=== PATIENT | male | born 1975 ===

== ENCOUNTER 2021-03-24 14:22 | Inpatient (IN) | payer OTHER ==
[~2021-03-24] VITALS: Ht 170.2 cm; Wt 71.8 kg
[2021-03-24] MEDS ORDERED: SODIUM CHLORIDE 0.9% 500 ML IVB ONE (14:45)
[2021-03-24] MEDS ORDERED: MORPHINE SULFATE 4 MG/ML SYR/VIAL IV ONE (14:45)
[2021-03-24] MEDS ORDERED: ONDANSETRON HCL 4 MG/2 ML VIAL IV ONE (14:45)
[2021-03-24 15:31] LABS: Basophils # (auto) 0.1 10 ^3/uL (0-0.2); Basophils % (auto) 0.8 % (0.0-2.0); Eosinophils # (auto) 0 10 ^3/uL (0-0.8); Eosinophils % (auto) 0.4 % (0.0-7.0); Lymphocytes # (auto) 3.1 10 ^3/uL (0.4-5.4); Mean Corpuscular Hemoglobin 24.1 pg (28.0-32.0); Mean Corpuscular Hgb Conc. 32.2 g/dL (32.0-36.0); Mean Corpuscular Volume 74.8 fL (80.0-100.0); Monocytes # (auto) 0.8 10 ^3/uL (0-1.3); Monocytes % (auto) 12.7 % (0.0-12.0); Neutrophils # (auto) 2.5 10 ^3/uL (1.6-8.6); Neutrophils % (auto) 38.1 % (37.0-80.0); Nucleated Red Blood Cells % 0.1 %; Red Blood Cells 4.15 10^6/uL (4.5-5.90); Red Cell Distribution Width 18.8 % (11.8-14.3); White Blood Cell 6.5 10^3/uL (4.4-10.8)
[2021-03-24 15:50] LABS: Albumin 1.8 g/dL (3.4-5.0); Calcium 7.7 mg/dL (8.5-10.1); Potassium 4.2 mmol/L (3.5-5.1)
[2021-03-24 15:54] LABS: BUN/Creatinine Ratio 13.9; Bilirubin, Total 0.6 mg/dL (0.2-1.0)
[2021-03-24] MEDS ORDERED: MORPHINE SULFATE INJECTION 2 MG/ML SYRG IV PRN (17:45)
[2021-03-24] MEDS ORDERED: NITROGLYCERIN 0.4 MG SL TAB SL PRN (17:45)
[2021-03-24] MEDS ORDERED: ONDANSETRON HCL 4 MG/2 ML VIAL IV PRN (17:45)
[2021-03-25] MEDS: PANTOPRAZOLE 40 MG/10 ML VIAL INJ IV SCH ×3 (00:40→21:09)
[2021-03-25] MEDS: DULoxetine HCL 30 MG CAP PO SCH ×2 (00:41→21:09)
[2021-03-25 05:25] VITALS: BP 131/86
[2021-03-25] MEDS: ONDANSETRON HCL 4 MG/2 ML VIAL IV PRN (05:39)
[2021-03-25 07:10] LABS: Basophils # (auto) 0 10 ^3/uL (0-0.2); Basophils % (auto) 0.7 % (0.0-2.0); Eosinophils # (auto) 0 10 ^3/uL (0-0.8); Lymphocytes # (auto) 1.6 10 ^3/uL (0.4-5.4); Monocytes # (auto) 0.6 10 ^3/uL (0-1.3); Neutrophils # (auto) 2.9 10 ^3/uL (1.6-8.6)
[2021-03-25 07:12] LABS: Eosinophils % (auto) 0.7 % (0.0-7.0); Hematocrit 29.6 % (41.0-53.0); Hemoglobin 9.4 g/dL (13.5-17.5); Lymphocytes % (auto) 30.6 % (10.0-50.0); Mean Corpuscular Hemoglobin 23.9 pg (28.0-32.0); Mean Corpuscular Hgb Conc. 31.8 g/dL (32.0-36.0); Monocytes % (auto) 12.1 % (0.0-12.0); Neutrophils % (auto) 55.9 % (37.0-80.0); Nucleated Red Blood Cells % 0.3 %; Red Blood Cells 3.95 10^6/uL (4.5-5.90); White Blood Cell 5.2 10^3/uL (4.4-10.8)
[2021-03-25 07:21] LABS: INR 1.12 (0.9-1.15); Partial Thromboplastin Time 33.2 sec (23.6-33.0)
[2021-03-25 07:25] LABS: Potassium 3.6 mmol/L (3.5-5.1)
[2021-03-25 07:29] LABS: Red Cell Distribution Width 19.1 % (11.8-14.3)
[2021-03-25 07:30] LABS: Albumin 1.8 g/dL (3.4-5.0); BUN/Creatinine Ratio 20.3; Bilirubin, Total 0.5 mg/dL (0.2-1.0); Calcium 7.5 mg/dL (8.5-10.1); Total Protein 5.9 g/dL (6.4-8.2)
[2021-03-25 08:00] VITALS: BP 123/84
[2021-03-25 09:00] VITALS: BP 123/84
[2021-03-25] MEDS: D5W/SOD CHL 0.45%/KCL 20MEQ 1,000 ML IV SCH ×2 (12:57→19:15)
[2021-03-25 13:00] VITALS: BP 122/79
[2021-03-25] MEDS: MEROPENEM 1GM IVPB 100 ML IV SCH ×2 (15:32→21:08)
[2021-03-25 17:00] VITALS: BP 124/80
[2021-03-25 22:00] VITALS: BP 127/84
[2021-03-26] MEDS: D5W/SOD CHL 0.45%/KCL 20MEQ 1,000 ML IV SCH ×2 (03:40→23:55)
[2021-03-26 05:00] VITALS: BP 129/89
[2021-03-26 05:05] LABS: Basophils # (auto) 0 10 ^3/uL (0-0.2); Eosinophils # (auto) 0 10 ^3/uL (0-0.8); Eosinophils % (auto) 0.8 % (0.0-7.0); Hemoglobin 9.5 g/dL (13.5-17.5); Monocytes # (auto) 0.7 10 ^3/uL (0-1.3); Nucleated Red Blood Cells % 0.1 %
[2021-03-26 05:07] LABS: Basophils % (auto) 0.9 % (0.0-2.0); Hematocrit 29.3 % (41.0-53.0); Lymphocytes # (auto) 2.5 10 ^3/uL (0.4-5.4); Lymphocytes % (auto) 49.6 % (10.0-50.0); Mean Corpuscular Hemoglobin 24.2 pg (28.0-32.0); Mean Corpuscular Hgb Conc. 32.5 g/dL (32.0-36.0); Mean Corpuscular Volume 74.4 fL (80.0-100.0); Monocytes % (auto) 12.9 % (0.0-12.0); Neutrophils # (auto) 1.8 10 ^3/uL (1.6-8.6); Neutrophils % (auto) 35.8 % (37.0-80.0); Red Blood Cells 3.94 10^6/uL (4.5-5.90); White Blood Cell 5.1 10^3/uL (4.4-10.8)
[2021-03-26 05:23] LABS: Calcium 7.6 mg/dL (8.5-10.1); Potassium 3.8 mmol/L (3.5-5.1)
[2021-03-26 05:27] LABS: Albumin 1.7 g/dL (3.4-5.0); BUN/Creatinine Ratio 9.5
[2021-03-26 05:29] LABS: Bilirubin, Total 0.4 mg/dL (0.2-1.0); Total Protein 5.7 g/dL (6.4-8.2)
[2021-03-26] MEDS: MEROPENEM 1GM IVPB 100 ML IV SCH ×3 (05:44→21:03)
[2021-03-26 09:00] VITALS: BP 131/87
[2021-03-26] MEDS: PANTOPRAZOLE 40 MG/10 ML VIAL INJ IV SCH ×2 (10:00→21:03)
[2021-03-26 13:00] VITALS: BP 123/81
[2021-03-26] MEDS: DULoxetine HCL 30 MG CAP PO SCH (21:03)
[2021-03-26 22:02] VITALS: BP 116/80
[2021-03-27] MEDS: D5W/SOD CHL 0.45%/KCL 20MEQ 1,000 ML IV SCH ×3 (01:15→22:56)
[2021-03-27 05:00] VITALS: BP 114/79
[2021-03-27] MEDS: MEROPENEM 1GM IVPB 100 ML IV SCH ×3 (05:37→22:53)
[2021-03-27] MEDS: PANTOPRAZOLE 40 MG/10 ML VIAL INJ IV SCH ×2 (09:41→22:52)
[2021-03-27 13:00] VITALS: BP 112/74
[2021-03-27 22:00] VITALS: BP 120/80
[2021-03-27] MEDS: DULoxetine HCL 30 MG CAP PO SCH (22:52)
[2021-03-28 05:00] VITALS: BP 118/81
[2021-03-28] MEDS: MEROPENEM 1GM IVPB 100 ML IV SCH ×3 (06:36→21:46)
[2021-03-28] MEDS: D5W/SOD CHL 0.45%/KCL 20MEQ 1,000 ML IV SCH ×2 (07:53→17:15)
[2021-03-28] MEDS ORDERED: MORPHINE SULFATE INJECTION 2 MG/ML SYRG IV PRN (08:45)
[2021-03-28] MEDS ORDERED: HYDROcodone-ACET 5/325MG TAB PO PRN (08:45)
[2021-03-28 09:00] VITALS: BP 121/75
[2021-03-28] MEDS: PANTOPRAZOLE 40 MG/10 ML VIAL INJ IV SCH ×2 (10:05→21:46)
[2021-03-28] MEDS: HYDROcodone-ACET 5/325MG TAB PO PRN (10:07)
[2021-03-28 13:02] VITALS: BP 116/85
[2021-03-28 16:49] VITALS: BP 108/72
[2021-03-28] MEDS: DULoxetine HCL 30 MG CAP PO SCH (21:46)
[2021-03-28 22:00] VITALS: BP 110/82
[2021-03-29] MEDS: D5W/SOD CHL 0.45%/KCL 20MEQ 1,000 ML IV SCH ×3 (04:30→23:15)
[2021-03-29 05:00] VITALS: BP 109/77
[2021-03-29] MEDS: MEROPENEM 1GM IVPB 100 ML IV SCH ×3 (06:28→21:37)
[2021-03-29 08:05] LABS: Basophils # (auto) 0.1 10 ^3/uL (0-0.2); Nucleated Red Blood Cells % 0.1 %; White Blood Cell 5.2 10^3/uL (4.4-10.8)
[2021-03-29 08:07] LABS: Basophils % (auto) 1.2 % (0.0-2.0); Eosinophils # (auto) 0.1 10 ^3/uL (0-0.8); Eosinophils % (auto) 1.2 % (0.0-7.0); Hematocrit 33.8 % (41.0-53.0); Hemoglobin 10.5 g/dL (13.5-17.5); Lymphocytes # (auto) 2.3 10 ^3/uL (0.4-5.4); Lymphocytes % (auto) 43.8 % (10.0-50.0); Mean Corpuscular Hgb Conc. 31.1 g/dL (32.0-36.0); Monocytes # (auto) 0.5 10 ^3/uL (0-1.3); Monocytes % (auto) 9.6 % (0.0-12.0); Neutrophils # (auto) 2.3 10 ^3/uL (1.6-8.6); Neutrophils % (auto) 44.2 % (37.0-80.0); Red Blood Cells 4.52 10^6/uL (4.5-5.90)
[2021-03-29 08:12] LABS: Mean Corpuscular Hemoglobin 23.2 pg (28.0-32.0); Mean Corpuscular Volume 74.7 fL (80.0-100.0)
[2021-03-29 08:22] LABS: Albumin 1.7 g/dL (3.4-5.0); Calcium 7.7 mg/dL (8.5-10.1)
[2021-03-29 08:26] LABS: BUN/Creatinine Ratio 8.8; Bilirubin, Total 0.4 mg/dL (0.2-1.0); Total Protein 5.8 g/dL (6.4-8.2)
[2021-03-29 09:00] VITALS: BP 115/81
[2021-03-29] MEDS: PANTOPRAZOLE 40 MG/10 ML VIAL INJ IV SCH ×2 (09:09→21:36)
[2021-03-29 13:03] VITALS: BP 112/74
[2021-03-29 17:00] VITALS: BP 110/76
[2021-03-29] MEDS: DULoxetine HCL 30 MG CAP PO SCH (21:36)
[2021-03-29 22:00] VITALS: BP 113/74
[2021-03-30 05:36] VITALS: BP 113/76
[2021-03-30] MEDS: MEROPENEM 1GM IVPB 100 ML IV SCH ×3 (05:42→21:05)
[2021-03-30 09:00] VITALS: BP 113/85
[2021-03-30] MEDS: D5W/SOD CHL 0.45%/KCL 20MEQ 1,000 ML IV SCH ×2 (09:44→19:15)
[2021-03-30] MEDS: PANTOPRAZOLE 40 MG/10 ML VIAL INJ IV SCH ×2 (09:44→21:05)
[2021-03-30 13:00] VITALS: BP 119/80
[2021-03-30] MEDS: ACYCLOVIR 400 MG TAB PO SCH ×3 (14:00→21:07)
[2021-03-30] MEDS: DULoxetine HCL 30 MG CAP PO SCH (21:06)
[2021-03-30 22:35] VITALS: BP 121/78
[2021-03-31] MEDS: D5W/SOD CHL 0.45%/KCL 20MEQ 1,000 ML IV SCH ×2 (05:15→15:15)
[2021-03-31] MEDS: MEROPENEM 1GM IVPB 100 ML IV SCH ×3 (05:45→21:31)
[2021-03-31] MEDS: ACYCLOVIR 400 MG TAB PO SCH ×5 (05:45→21:32)
[2021-03-31] MEDS: PANTOPRAZOLE 40 MG/10 ML VIAL INJ IV SCH ×2 (10:24→21:31)
[2021-03-31] MEDS: DULoxetine HCL 30 MG CAP PO SCH (21:32)
[2021-03-31 22:00] VITALS: BP 125/78
[2021-03-31] MEDS: HYDROcodone-ACET 5/325MG TAB PO PRN (22:30)
[2021-04-01] MEDS: D5W/SOD CHL 0.45%/KCL 20MEQ 1,000 ML IV SCH ×3 (01:16→21:15)
[2021-04-01 05:00] VITALS: BP 116/80
[2021-04-01] MEDS: ACYCLOVIR 400 MG TAB PO SCH ×5 (05:42→21:55)
[2021-04-01] MEDS: MEROPENEM 1GM IVPB 100 ML IV SCH ×3 (05:42→21:53)
[2021-04-01 09:00] VITALS: BP 125/85
[2021-04-01] MEDS ORDERED: GOLYTELY 4L KIT PO ONE (10:00)
[2021-04-01] MEDS: PANTOPRAZOLE 40 MG/10 ML VIAL INJ IV SCH ×2 (11:17→21:53)
[2021-04-01 13:00] VITALS: BP 119/76
[2021-04-01] MEDS: ONDANSETRON HCL 4 MG/2 ML VIAL IV PRN (14:51)
[2021-04-01 17:00] VITALS: BP 118/78
[2021-04-01] MEDS: DULoxetine HCL 30 MG CAP PO SCH (21:54)
[2021-04-01 22:00] VITALS: BP 120/75
[2021-04-02 05:30] VITALS: BP 115/78
[2021-04-02] MEDS ORDERED: GOLYTELY 4L KIT PO ONE (06:00)
[2021-04-02] MEDS: ACYCLOVIR 400 MG TAB PO SCH ×5 (06:00→22:57)
[2021-04-02] MEDS: MEROPENEM 1GM IVPB 100 ML IV SCH ×2 (06:00→14:50)
[2021-04-02] MEDS: D5W/SOD CHL 0.45%/KCL 20MEQ 1,000 ML IV SCH ×4 (07:31→18:19)
[2021-04-02] MEDS ORDERED: diphenhdrAMINE HCL 50 MG/1 ML VL ONE (08:18)
[2021-04-02] MEDS ORDERED: fentaNYL CITRATE 100 MCG/2 ML VL ONE (08:18)
[2021-04-02] MEDS ORDERED: MIDAZOLAM HCL 5 MG/ML-1ML VIAL ONE (08:18)
[2021-04-02] MEDS: PANTOPRAZOLE 40 MG/10 ML VIAL INJ IV SCH ×2 (09:14→22:57)
[2021-04-02 09:41] VITALS: BP 115/72
[2021-04-02 10:53] LABS: Basophils # (auto) 0 10 ^3/uL (0-0.2); Basophils % (auto) 0.6 % (0.0-2.0); Eosinophils # (auto) 0 10 ^3/uL (0-0.8); Hemoglobin 10.2 g/dL (13.5-17.5); Monocytes # (auto) 0.6 10 ^3/uL (0-1.3)
[2021-04-02 10:56] LABS: Eosinophils % (auto) 0.4 % (0.0-7.0); Lymphocytes # (auto) 2.8 10 ^3/uL (0.4-5.4); Lymphocytes % (auto) 37.9 % (10.0-50.0); Mean Corpuscular Hemoglobin 24.1 pg (28.0-32.0); Mean Corpuscular Hgb Conc. 32.8 g/dL (32.0-36.0); Mean Corpuscular Volume 73.5 fL (80.0-100.0); Monocytes % (auto) 8.1 % (0.0-12.0); Neutrophils # (auto) 3.9 10 ^3/uL (1.6-8.6); Nucleated Red Blood Cells % 0.1 %; Red Blood Cells 4.21 10^6/uL (4.5-5.90); Red Cell Distribution Width 19.1 % (11.8-14.3); White Blood Cell 7.3 10^3/uL (4.4-10.8)
[2021-04-02 11:08] LABS: Albumin 1.7 g/dL (3.4-5.0); BUN/Creatinine Ratio 8.3; Bilirubin, Total 0.4 mg/dL (0.2-1.0); Calcium 7.6 mg/dL (8.5-10.1); Total Protein 6.4 g/dL (6.4-8.2)
[2021-04-02 11:10] LABS: INR 1.16 (0.9-1.15); Partial Thromboplastin Time 42.7 sec (23.6-33.0)
[2021-04-02] MEDS ORDERED: methylPREDNISolone SOD SUCC 1,000 MG in SODIUM CHL 0.9% 250 ML IV ONE (12:15)
[2021-04-02 13:00] VITALS: BP 125/77
[2021-04-02] MEDS ORDERED: AZITHROMYCIN 250 MG TAB PO ONE (16:30)
[2021-04-02] MEDS ORDERED: REMDESIVIR PER PHARMACY 0 ML IV SCH (16:45)
[2021-04-02 17:00] VITALS: BP 124/73
[2021-04-02] MEDS ORDERED: REMDESIVIR 200 MG in NS 210ml LOADING DOSE ADULT IV ONE (20:00)
[2021-04-02] MEDS: ALBUTEROL SULF HFA 90MCG INH 200DOSE IN SCH (21:55)
[2021-04-02 22:00] VITALS: BP 111/70
[2021-04-02] MEDS: methylPREDNISolone SOD SUCC 125 MG/2 ML VL IV SCH (22:57)
[2021-04-02] MEDS: DULoxetine HCL 30 MG CAP PO SCH (22:57)
[2021-04-03] MEDS: MEROPENEM 1GM IVPB 100 ML IV SCH ×4 (00:27→20:59)
[2021-04-03 05:00] VITALS: BP 124/81
[2021-04-03] MEDS: ACYCLOVIR 400 MG TAB PO SCH ×4 (05:48→19:58)
[2021-04-03] MEDS: ALBUTEROL SULF HFA 90MCG INH 200DOSE IN SCH ×2 (06:00→22:15)
[2021-04-03 07:32] LABS: Potassium 4.1 mmol/L (3.5-5.1)
[2021-04-03 07:40] LABS: Albumin 1.7 g/dL (3.4-5.0); Bilirubin, Total 0.3 mg/dL (0.2-1.0); Calcium 7.5 mg/dL (8.5-10.1); Total Protein 6.5 g/dL (6.4-8.2)
[2021-04-03 09:00] VITALS: BP 120/80
[2021-04-03] MEDS: methylPREDNISolone SOD SUCC 125 MG/2 ML VL IV SCH ×2 (10:30→20:59)
[2021-04-03] MEDS: ASCORBIC ACID 500 MG TAB PO SCH (10:30)
[2021-04-03] MEDS: CHOLECALCIFEROL (VITD3) 1,000UNIT=25mCg TAB PO SCH (10:30)
[2021-04-03] MEDS: PANTOPRAZOLE 40 MG/10 ML VIAL INJ IV SCH ×2 (11:00→20:59)
[2021-04-03] MEDS ORDERED: ACETAMINOPHEN 325 MG TAB PO PRN (12:30)
[2021-04-03 13:00] VITALS: BP 120/75
[2021-04-03] MEDS: D5W/SOD CHL 0.45%/KCL 20MEQ 1,000 ML IV SCH (14:00)
[2021-04-03] MEDS: REMDESIVIR 100mg 100 MG in SODIUM CHL 0.9% 230 ML IV SCH (15:30)
[2021-04-03 17:00] VITALS: BP 118/75
[2021-04-03] MEDS: DULoxetine HCL 30 MG CAP PO SCH (20:59)
[2021-04-03 22:00] VITALS: BP 127/78
[2021-04-04] MEDS: D5W/SOD CHL 0.45%/KCL 20MEQ 1,000 ML IV SCH ×3 (00:16→21:34)
[2021-04-04] MEDS: ACYCLOVIR 400 MG TAB PO SCH ×6 (00:16→21:34)
[2021-04-04 05:00] VITALS: BP 126/72
[2021-04-04] MEDS: ALBUTEROL SULF HFA 90MCG INH 200DOSE IN SCH ×2 (05:46→14:28)
[2021-04-04] MEDS: MEROPENEM 1GM IVPB 100 ML IV SCH ×3 (06:00→21:34)
[2021-04-04 06:28] LABS: Potassium 4.1 mmol/L (3.5-5.1)
[2021-04-04 06:38] LABS: Albumin 1.7 g/dL (3.4-5.0); Bilirubin, Total 0.2 mg/dL (0.2-1.0); Calcium 7.7 mg/dL (8.5-10.1); Total Protein 5.8 g/dL (6.4-8.2)
[2021-04-04 09:00] VITALS: BP 119/69
[2021-04-04] MEDS: PANTOPRAZOLE 40 MG/10 ML VIAL INJ IV SCH ×2 (10:50→21:34)
[2021-04-04] MEDS: ASCORBIC ACID 500 MG TAB PO SCH (10:51)
[2021-04-04] MEDS: CHOLECALCIFEROL (VITD3) 1,000UNIT=25mCg TAB PO SCH (10:51)
[2021-04-04] MEDS: methylPREDNISolone SOD SUCC 125 MG/2 ML VL IV SCH ×2 (10:51→21:34)
[2021-04-04 13:00] VITALS: BP 117/68
[2021-04-04] MEDS: REMDESIVIR 100mg 100 MG in SODIUM CHL 0.9% 230 ML IV SCH (13:55)
[2021-04-04 17:00] VITALS: BP 121/73
[2021-04-04] MEDS: DULoxetine HCL 30 MG CAP PO SCH (21:34)
[2021-04-04 22:00] VITALS: BP 111/71
[2021-04-05 05:00] VITALS: BP 114/61
[2021-04-05] MEDS: ACYCLOVIR 400 MG TAB PO SCH ×5 (06:29→22:35)
[2021-04-05] MEDS: MEROPENEM 1GM IVPB 100 ML IV SCH ×3 (06:29→22:34)
[2021-04-05 06:46] LABS: Albumin 1.7 g/dL (3.4-5.0); Calcium 7.8 mg/dL (8.5-10.1); Potassium 4.4 mmol/L (3.5-5.1)
[2021-04-05 06:50] LABS: BUN/Creatinine Ratio 23.2; Bilirubin, Total 0.2 mg/dL (0.2-1.0); Total Protein 5.7 g/dL (6.4-8.2)
[2021-04-05] MEDS: ALBUTEROL SULF HFA 90MCG INH 200DOSE IN SCH ×3 (07:17→19:25)
[2021-04-05] MEDS: D5W/SOD CHL 0.45%/KCL 20MEQ 1,000 ML IV SCH ×2 (07:45→15:15)
[2021-04-05 09:00] VITALS: BP 130/79
[2021-04-05] MEDS: PANTOPRAZOLE 40 MG/10 ML VIAL INJ IV SCH ×2 (10:03→22:34)
[2021-04-05] MEDS: methylPREDNISolone SOD SUCC 125 MG/2 ML VL IV SCH ×2 (10:04→22:35)
[2021-04-05] MEDS: ASCORBIC ACID 500 MG TAB PO SCH (10:04)
[2021-04-05] MEDS: CHOLECALCIFEROL (VITD3) 1,000UNIT=25mCg TAB PO SCH (10:04)
[2021-04-05 13:00] VITALS: BP 119/80
[2021-04-05] MEDS: ARTIFICIAL TEARS 15ml EACHEYE PRN ×2 (16:00→22:49)
[2021-04-05] MEDS: REMDESIVIR 100mg 100 MG in SODIUM CHL 0.9% 230 ML IV SCH (18:34)
[2021-04-05 22:00] VITALS: BP 129/81
[2021-04-05] MEDS: DULoxetine HCL 30 MG CAP PO SCH (22:35)
[2021-04-06 05:00] VITALS: BP 113/75
[2021-04-06] MEDS: MEROPENEM 1GM IVPB 100 ML IV SCH ×3 (06:06→20:35)
[2021-04-06] MEDS: ACYCLOVIR 400 MG TAB PO SCH ×4 (06:06→20:35)
[2021-04-06] MEDS: D5W/SOD CHL 0.45%/KCL 20MEQ 1,000 ML IV SCH ×2 (06:08→21:15)
[2021-04-06 09:00] VITALS: BP 113/69
[2021-04-06] MEDS: ALBUTEROL SULF HFA 90MCG INH 200DOSE IN SCH ×2 (09:29→21:59)
[2021-04-06] MEDS: CHOLECALCIFEROL (VITD3) 1,000UNIT=25mCg TAB PO SCH (10:00)
[2021-04-06] MEDS: PANTOPRAZOLE 40 MG/10 ML VIAL INJ IV SCH ×2 (10:46→20:35)
[2021-04-06] MEDS: ASCORBIC ACID 500 MG TAB PO SCH (10:47)
[2021-04-06] MEDS: methylPREDNISolone SOD SUCC 125 MG/2 ML VL IV SCH ×2 (10:47→20:35)
[2021-04-06 13:00] VITALS: BP 113/60
[2021-04-06] MEDS: REMDESIVIR 100mg 100 MG in SODIUM CHL 0.9% 230 ML IV SCH (15:00)
[2021-04-06 17:00] VITALS: BP 112/71
[2021-04-06] MEDS: DULoxetine HCL 30 MG CAP PO SCH (20:35)
[2021-04-06 21:20] VITALS: BP 106/71
[2021-04-07] MEDS: ACYCLOVIR 400 MG TAB PO SCH ×6 (01:38→21:38)
[2021-04-07] MEDS: D5W/SOD CHL 0.45%/KCL 20MEQ 1,000 ML IV SCH ×3 (01:38→17:33)
[2021-04-07 05:00] VITALS: BP 115/63
[2021-04-07] MEDS: MEROPENEM 1GM IVPB 100 ML IV SCH ×3 (06:28→22:00)
[2021-04-07 09:00] VITALS: BP 105/61
[2021-04-07] MEDS: PANTOPRAZOLE 40 MG/10 ML VIAL INJ IV SCH ×2 (09:07→21:37)
[2021-04-07] MEDS: methylPREDNISolone SOD SUCC 125 MG/2 ML VL IV SCH ×2 (09:07→21:37)
[2021-04-07] MEDS: ASCORBIC ACID 500 MG TAB PO SCH (09:08)
[2021-04-07] MEDS: CHOLECALCIFEROL (VITD3) 1,000UNIT=25mCg TAB PO SCH (09:08)
[2021-04-07 13:00] VITALS: BP 109/61
[2021-04-07 16:43] VITALS: BP 131/77
[2021-04-07] MEDS: DULoxetine HCL 30 MG CAP PO SCH (21:37)
[2021-04-07 22:00] VITALS: BP 115/73
[2021-04-08] MEDS: D5W/SOD CHL 0.45%/KCL 20MEQ 1,000 ML IV SCH ×3 (03:15→19:31)
[2021-04-08 05:00] VITALS: BP 110/66
[2021-04-08] MEDS: MEROPENEM 1GM IVPB 100 ML IV SCH ×3 (05:36→21:25)
[2021-04-08] MEDS: ACYCLOVIR 400 MG TAB PO SCH ×5 (05:36→21:26)
[2021-04-08 08:59] VITALS: BP 107/61
[2021-04-08] MEDS: predniSONE 20 MG TAB PO SCH (09:52)
[2021-04-08] MEDS: ASCORBIC ACID 500 MG TAB PO SCH (09:52)
[2021-04-08] MEDS: CHOLECALCIFEROL (VITD3) 1,000UNIT=25mCg TAB PO SCH (09:52)
[2021-04-08] MEDS: PANTOPRAZOLE 40 MG/10 ML VIAL INJ IV SCH ×2 (09:52→21:26)
[2021-04-08] MEDS: azaTHIOprine 50 MG TAB PO SCH (10:21)
[2021-04-08 13:00] VITALS: BP 109/61
[2021-04-08] MEDS: MESALAMINE 400mg Delayed Release Cap PO SCH ×2 (13:03→21:26)
[2021-04-08 16:56] VITALS: BP 121/68
[2021-04-08] MEDS: ALBUTEROL SULF HFA 90MCG INH 200DOSE IN PRN (18:44)
[2021-04-08] MEDS: DULoxetine HCL 30 MG CAP PO SCH (21:26)
[2021-04-08 22:00] VITALS: BP 118/67
[2021-04-09 05:00] VITALS: BP 118/58
[2021-04-09] MEDS: MESALAMINE 400mg Delayed Release Cap PO SCH ×3 (05:44→21:37)
[2021-04-09] MEDS: MEROPENEM 1GM IVPB 100 ML IV SCH ×3 (05:44→21:36)
[2021-04-09] MEDS: ACYCLOVIR 400 MG TAB PO SCH ×3 (05:44→14:29)
[2021-04-09] MEDS: ALBUTEROL SULF HFA 90MCG INH 200DOSE IN PRN ×2 (05:55→20:56)
[2021-04-09 09:00] VITALS: BP 112/77
[2021-04-09] MEDS: D5W/SOD CHL 0.45%/KCL 20MEQ 1,000 ML IV SCH ×2 (09:15→17:59)
[2021-04-09] MEDS: PANTOPRAZOLE 40 MG/10 ML VIAL INJ IV SCH ×2 (10:20→21:36)
[2021-04-09] MEDS: azaTHIOprine 50 MG TAB PO SCH (10:20)
[2021-04-09] MEDS: predniSONE 20 MG TAB PO SCH (10:20)
[2021-04-09] MEDS: CHOLECALCIFEROL (VITD3) 1,000UNIT=25mCg TAB PO SCH (10:21)
[2021-04-09] MEDS: ASCORBIC ACID 500 MG TAB PO SCH (10:21)
[2021-04-09 13:00] VITALS: BP 109/66
[2021-04-09 17:00] VITALS: BP 103/59
[2021-04-09] MEDS: DULoxetine HCL 30 MG CAP PO SCH (21:37)
[2021-04-09 22:00] VITALS: BP 106/68
[2021-04-10 05:00] VITALS: BP 107/69
[2021-04-10] MEDS: MEROPENEM 1GM IVPB 100 ML IV SCH ×2 (05:44→13:56)
[2021-04-10] MEDS: MESALAMINE 400mg Delayed Release Cap PO SCH ×2 (05:44→14:46)
[2021-04-10 08:39] VITALS: BP 109/73
[2021-04-10] MEDS: predniSONE 20 MG TAB PO SCH (09:33)
[2021-04-10] MEDS: CHOLECALCIFEROL (VITD3) 1,000UNIT=25mCg TAB PO SCH (09:33)
[2021-04-10] MEDS: PANTOPRAZOLE 40 MG/10 ML VIAL INJ IV SCH (09:33)
[2021-04-10] MEDS: ASCORBIC ACID 500 MG TAB PO SCH (09:33)
[2021-04-10] MEDS: azaTHIOprine 50 MG TAB PO SCH (09:33)
[2021-04-10] MEDS: D5W/SOD CHL 0.45%/KCL 20MEQ 1,000 ML IV SCH ×2 (10:48→15:15)
[2021-04-10] MEDS: ALBUTEROL SULF HFA 90MCG INH 200DOSE IN PRN ×2 (10:51→20:37)
[2021-04-10 12:46] VITALS: BP 109/65
[2021-04-10 16:42] VITALS: BP 108/65
[2021-04-10] MEDS ORDERED: AZAT50TA2 PO (17:20)
[2021-04-10] MEDS ORDERED: PRED10TA PO (17:20)
[2021-04-10] MEDS ORDERED: PRED20TA2 PO ×2 (17:20)
[2021-04-10] MEDS ORDERED: MESA400C PO (17:20)
== END 2021-04-10 21:20 | DRG 385 ==
LOC: ER 14:22 → EDBD 14:22 → EEVIPCON 14:22 → OVERFLOW 17:32 → WEST WING 23:19 → EAST 04-02 13:35
PROVIDERS: ADMIT Internal Medicine; ATTEND Internal Medicine
PROC: XW033E5 Introduction of Remdesivir Anti-infective into Peripheral Vein, Percutaneous Approach, New Technology Group 5 (ICD-10-PCS; principal; 2021-04-02)
DX: K51.90 Ulcerative colitis, unspecified, without complications (principal); U07.1 COVID-19; J12.82 Pneumonia due to coronavirus disease 2019; E44.0 Moderate protein-calorie malnutrition; R64 Cachexia; K92.0 Hematemesis; K52.3 Indeterminate colitis; K21.9 Gastro-esophageal reflux disease without esophagitis; I10 Essential (primary) hypertension; B02.9 Zoster without complications; D50.0 Iron deficiency anemia secondary to blood loss (chronic); F32.A Depression, unspecified; Z80.0 Family history of malignant neoplasm of digestive organs; Z23 Encounter for immunization; Z68.22 Body mass index [BMI] 22.0-22.9, adult
CPT/HCPCS: 36415; 71045; 74176; 80053; 82150; 82270; 83690; 85025; 85048; 85610; 85730; 86850; 86900; 86901; 87045; 87081; 87426; 87427; 87493; 93005; 94640; 96361; 96374; 96375; C9113; G0378; J2185; J2250; J2405